=== PATIENT | female | born 1985 | race Caucasian/White ===

== ENCOUNTER 2016-12-27 20:22 | Emergency (ER) | payer MEDICAID ==
[~2016-12-27] VITALS: Ht 157.5 cm; Wt 69.5 kg
[~2016-12-27 20:22] MED LIST: PRENAT PO
[2016-12-27 20:26] VITALS: Ht 157.5 cm; Wt 69.5 kg
--- NOTE | 2016-12-27 21:58 | RADRPT ---
PROCEDURE: US Pelvis. CLINICAL INDICATION: Pelvic pain TECHNIQUE: Multiple sonographic images of the pelvis were obtained utilizing a transabdominal and endovaginal technique. The images were reviewed on a PACS workstation. COMPARISON: 06/24/2014 FINDINGS: Uterus: Normal in size, contour and echogenicity with no evidence for myometrial masses. Size is est imated at 8 x 4.9 x 4.5 cm. Cervix: No abnormalities of significance are seen. Endometrium: Normal in thickness; 3.4 mm. Right ovary / adnexa: Normal in size estimated at 2 x 1.7 x 1.2 cm. No evidence for masses, normal blood flow on Doppler interrogation. Left ovary/adnexa: Enlarged in size estimated at 4.2 x 4.1 x 2.8 cm. Anechoic simple cyst measuring 4 x 3.6 x 2.2 cm is slightly larger than on the previous exam No evidence for solid masses, normal b lood flow on Doppler interrogation. Cul-de-sac: No evidence of free fluid. RPTAT:HJJR IMPRESSION: 1. Simple left ovarian cyst is slightly larger compared to the prior exam of 06/24/2014 measuring 4 x 3.6 x 2.2 cm, previously 3 cm in maximum dimension. Findings may reflect a serous cystadenoma. Normal blood flow within the ovarian tissue is noted. Consider follow-up evaluation. 2. Remainder of the examination is unremarkable. Physician Marybel Date Time Electronically viewed and signed by Physician Marybel on 12/27/2016 21:57 /
[2016-12-27 22:05] LABS: URINE BLOOD (Dip) POC 2+ (NEGATIVE)
--- NOTE | 2016-12-27 22:15 | ERD ---
ER Documentation Chief Complaint Date/Time DATE: 12/27/16 TIME: 22:12 Chief Complaint vaginal bleeding x 2 months HPI Patient is a 31-year-old female who presents to the ED with vaginal bleeding for the last 2 months. She states that she has been using 5-6 pads a day. She denies dizziness, headache, nausea, vomiting or abdominal pain. She does state that she has mild left pelvic pain. Denies dysuria urgency. States that she has changed her control method multiple times and has tried the IUD and switch to an Implanon and now is doing Depo shot She states that she has gone to her regular doctor who stated "her bleeding is normal". She has no other complaints. She is not taking iron. She denies diarrhea or vomiting patient denies neck pain or stiffness. Denies cough, shortness of breath or difficulty breathing. Denies leg pain or swelling. No recent travel or recent surgeries. ROS All systems reviewed and are negative except as per history of present illness. Medications Home Meds Active Scripts Naproxen* (Naprosyn*) 500 Mg Tablet, 500 MG PO BID Y for PAIN AND/OR INFLAMMATION, #30 TAB Prov:CADY ENCARNACION PA-C 12/27/16 Reported Medications Multivit/Min/Fol Ac/Iron/Pren* ( S*) 1 Tab Tab, 1 TAB PO DAILY, TAB 12/22/14 Allergies Allergies: Coded Allergies: No Known Drug Allergies (Verified Allergy, Unknown, 03/20/15) PMhx/Soc Medical and Surgical Hx: pt denies Surgical Hx History of Surgery: No Anesthesia Reaction: No Hx Neurological Disorder: No Hx Respiratory Disorders: No Hx Cardiac Disorders: Yes (HTN) Hx Psychiatric Problems: No Hx Miscellaneous Medical Probl: Yes (KIDNEY STONE) Hx Alcohol Use: No Hx Substance Use: No Hx Tobacco Use: No Smoking Status: Never smoker Physical Exam Vitals Vital Signs Date Time Temp Pulse Resp B/P Pulse Ox O2 Delivery O2 Flow Rate FiO2 12/27/16 20:26 97.9 77 20 130/67 100 Physical Exam GENERAL: Well-developed, well-nourished female. Appears in no acute distress. HEAD: Normocephalic, atraumatic. EYES: Pupils are equally reactive bilaterally. EOMs grossly intact. No conjunctival erythema. ENT: Moist mucous membranes. No uvula deviation. No kissing tonsils. No exudates. NECK: Supple. No lymphadenopathy or thyromegaly. No meningismus. negative kernig. negative brudinski. LUNG: Clear to auscultation bilaterally. No rhonchi, wheezing, rales or coarse breath sounds. HEART: Regular rate and rhythm. No murmurs, rubs or gallops. ABDOMEN: No scars, ecchymosis or rashes noted. Soft, nontender, and nondistended. Positive bowel sounds in all four quadrants. No rebound tenderness , no guarding. (-) McBurneys point tenderness. No CVA tenderness. BACK: No midline tenderness. Extremities: Equal pulses bilaterally. No peripheral clubbing, cyanosis or edema. No unilateral leg swelling. NEUROLOGIC: Alert and oriented. Moving all four extremities. 5/5 strength in all extremities. Normal speech. Steady gait. SKIN: Normal color. Warm and dry. No rashes or lesions. Capillary refill < 2 seconds Result Diagram: 12/27/162129 Results 24 hrs Laboratory Tests Test 12/27/16 21:30 12/27/16 22:07 White Blood Count 9.010^3/ul Red Blood Count 4.7610^6/ul Hemoglobin 13.0g/dl Hematocrit 39.4% Mean Corpuscular Volume 82.8fl Mean Corpuscular Hemoglobin 27.3pg Mean Corpuscular Hemoglobin Concent 33.0g/dl Red Cell Distribution Width 13.5% Platelet Count 97146^3/UL Mean Platelet Volume 9.0fl Neutrophils % 39.2% Lymphocytes % 44.6% Monocytes % 7.0% Eosinophils % 8.2% Basophils % 0.7% Nucleated Red Blood Cells % 0.0/100WBC Neutrophils # 3.610^3/ul Lymphocytes # 4.010^3/ul Monocytes # 0.610^3/ul Eosinophils # 0.710^3/ul Basophils # 0.110^3/ul Nucleated Red Blood Cells # 0.010^3/ul Bedside Urine pH (LAB) 6.5 Bedside Urine Protein (LAB) Negative Bedside Urine Glucose (UA) Negative Bedside Urine Ketones (LAB) Negative Bedside Urine Blood 2+ Bedside Urine Nitrite (LAB) Negative Bedside Urine Leukocyte Esterase (L Negative Procedures/MDM ER COURSE: I kept the patient and/or family informed of laboratory and diagnostic imaging results throughout the emergency room course. IMAGING STUDIES [place] [address] Radiology Main Line: [phone] DIAGNOSTIC IMAGING REPORT Patient: JOHN URIOSTEGUI : 1985 Age: 31 Sex: F MR #: [id number] DOS: 12/27/16 2106 Ordering MD: CADY ENCARNACION PA-C Location: [facility] Room/Bed: PROCEDURE: US Pelvis. CLINICAL INDICATION: Pelvic pain TECHNIQUE: Multiple sonographic images of the pelvis were obtained utilizing a transabdominal and endovaginal technique. The images were reviewed on a PACS workstation. COMPARISON: 06/24/2014 FINDINGS: Uterus: Normal in size, contour and echogenicity with no evidence for myometrial masses. Size is estimated at 8 x 4.9 x 4.5 cm. Cervix: No abnormalities of significance are seen. Endometrium: Normal in thickness; 3.4 mm. Right ovary / adnexa: Normal in size estimated at 2 x 1.7 x 1.2 cm. No evidence for masses, normal blood flow on Doppler interrogation. Left ovary/adnexa: Enlarged in size estimated at 4.2 x 4.1 x 2.8 cm. Anechoic simple cyst measuring 4 x 3.6 x 2.2 cm is slightly larger than on the previous exam No evidence for solid masses, normal blood flow on Doppler interrogation. Cul-de-sac: No evidence of free fluid. RPTAT:HJJR IMPRESSION: 1. Simple left ovarian cyst is slightly larger compared to the prior exam of measuring 4 x 3.6 x 2.2 cm, previously 3 cm in maximum dimension. Findings may reflect a serous cystadenoma. Normal blood flow within the ovarian tissue is noted. Consider follow-up evaluation. 2. Remainder of the examination is unremarkable. Physician Marybel Date Time Electronically viewed and signed by Physician Marybel on 12/27/2016 21:57 JR/ CC: CADY ENCARNACION PA-C LABORATORY STUDIES Urine dip shows no nitrites or leukocytes, 2+ hemoglobin CBC does not show signs of anemia or infection. Negative test MEDICAL DECISION MAKING: This is a 31-year-old female who presents with vaginal bleeding 2 months. Vital signs were reviewed. Patient is afebrile. Patient is not hypoxic. Patient is not toxic or ill-appearing. Patient has vaginal bleeding of unknown etiology. Her ultrasound is read by radiologist showed a simple left ovarian cyst 4 x 3.6 x 2.2 cm. This could reflect a serous cystadenoma. Low suspicion for ovarian torsion, PID, tuboovarian abscess, ectopic , bowel obstruction, pyelonephritis, UTI, appendicitis, cervicitis, septic , molar , HELLP syndrome, preeclampsia, eclampsia, placenta previa, placenta abruptia. I have low suspicion for ovarian torsion as patient does not have pain and is not ill-appearing. Patient is walking around with no pain and smiling. Low suspicion for ectopic , , molar , endometriosis, PID, cervicitis, septic , molar , HELLP syndrome , preeclampsia, eclampsia, placenta previa, placenta abruptia. DISCHARGE: At this time, patient is stable for discharge and outpatient management with no new complaints during the ER course. Patient was sent home with Madelyn and to follow-up with her trading manager for further evaluation. copy of imaging studies was given to patient. Patient will be discharged home with instructions to recheck for new or worsening symptoms such as fever, nausea, weakness, LOC and to follow up with primary care in the next 1-2 days. Patient was advised to return to the ER for any new or worsening symptoms. Plan was discussed and patient and/or family understands and agrees. Home instructions were given. Departure Diagnosis: Primary Impression: Ovarian cyst Laterality: left Qualified Code: N83.202 - Cyst of left ovary Additional Impression: Vaginal bleeding Condition: Stable CADY ENCARNACION PA-C Dec 27, 2016 22:15
[2016-12-27 22:24] LABS: ADD SCAN DIFF NO
[2016-12-27 22:26] LABS: BASOPHIL # 0.1 10^3/ul (0.0-0.1); BASOPHILS % 0.7 % (0.0-2.0); EOSINOPHILS # 0.7 10^3/ul (0.0-0.5); EOSINOPHILS % 8.2 % (0.0-7.0); HEMATOCRIT 39.4 % (37.0-47.0); LYMPHOCYTES % 44.6 % (15.0-51.0); MEAN CORPUSCULAR HEMOGLOBIN 27.3 pg (29.0-33.0); MEAN CORPUSCULAR VOLUME 82.8 fl (82.0-101.0); MONOCYTE # 0.6 10^3/ul (0.3-0.9); NEUTROPHIL # 3.6 10^3/ul (1.6-7.5); NEUTROPHILS % 39.2 % (39.0-77.0); PLATELET COUNT 407 10^3/UL (140-415); RED BLOOD COUNT 4.76 10^6/ul (4.20-5.40); RED CELL DISTRIBUTION WIDTH 13.5 % (11.5-14.5)
[2016-12-27] MEDS ORDERED: NAPR-260 PO (22:58)
[2016-12-27 23:00] VITALS: BP 135/71; PULSE 67; RESP 18; TEMP 98.4
== END 2016-12-27 23:25 | disposition home or self-care (01) ==
LOC: FTE 20:22
DX: N83.202 Unspecified ovarian cyst, left side (principal); I10 Essential (primary) hypertension; R10.2 Pelvic and perineal pain
CPT/HCPCS: 76830; 76856; 81003; 85025; Z7502

== ENCOUNTER 2017-05-25 18:04 | Emergency (ER) | payer MEDICAID ==
[~2017-05-25] VITALS: Ht 157.5 cm; Wt 62.0 kg
[~2017-05-25 18:04] MED LIST changes: +NAPR-260 PO
[2017-05-25 18:16] VITALS: Ht 157.5 cm; Wt 62.0 kg
--- NOTE | 2017-05-25 21:38 | ERD ---
ER Documentation Chief Complaint Date/Time DATE: 05/25/17 TIME: 21:31 Chief Complaint pt bib family with c/o abd pain and slight bleeding approx 4 wks preg HPI This is a 31-year-old female presents to the ER requesting a test. Patient has not had her period over the last 8 weeks and is worried she is . Patient had a vasectomy, however she is still worried about . Patient has not had any vaginal bleeding and has not had a positive test. Denies any pelvic pain. She did. She denies any urinary or dysuria. ROS 12 point review of systems was done, all negative except per HPI. Medications Home Meds Active Scripts Naproxen* (Naprosyn*) 500 Mg Tablet, 500 MG PO BID Y for PAIN AND/OR INFLAMMATION, #30 TAB Prov:CADY ENCARNACION PA-C 12/27/16 Reported Medications Multivit/Min/Fol Ac/Iron/Pren* ( S*) 1 Tab Tab, 1 TAB PO DAILY, TAB 12/22/14 Allergies Allergies: Coded Allergies: No Known Drug Allergies (Verified Allergy, Unknown, 03/20/15) PMhx/Soc History of Surgery: No Anesthesia Reaction: No Hx Neurological Disorder: No Hx Respiratory Disorders: No Hx Cardiac Disorders: Yes (HTN) Hx Psychiatric Problems: No Hx Miscellaneous Medical Probl: Yes (KIDNEY STONE) Hx Alcohol Use: No Hx Substance Use: No Hx Tobacco Use: No Smoking Status: Never smoker Physical Exam Vitals Vital Signs Date Time Temp Pulse Resp B/P Pulse Ox O2 Delivery O2 Flow Rate FiO2 05/25/17 18:16 98.4 86 16 131/62 98 Physical Exam GENERAL: The patient is well developed and appropriate for usual state of health , in no apparent distress. HEENT: Atraumatic. CHEST: Clear to auscultation bilaterally. There are no rales, wheezes or rhonchi. HEART: Regular rate and rhythm. No murmurs, clicks, rubs or gallops. NEURO: Alert and oriented. SKIN: The skin is warm and dry. Procedures/MDM This is a 31-year-old female presents to the ER requesting a test. Patient's test is negative at this time. Patient likely has dysfunctional uterine bleeding versus missed. Patient is to follow-up with her primary care doctor within 1-2 days or return to ER sooner if symptoms worsen. My medical decision making shared with the patient she understands and agrees with plan. Departure Diagnosis: Primary Impression: test negative Condition: Stable Patient Instructions: Control Methods Referrals: [facility] Hours: 8:00 am - 5:00 pm Additional Instructions: Llame al doctor MAANA y gerber thomas KEVIN PARA DENTRO DE 1-2 WOLF.Dgale a la secretaria que nosotros le instruimos hacer esta kevin.Avise o llame si dickson condicin se empeora antes de la kevin. Regresa aqui si peor o no mejor. YRIS CHA May 25, 2017 21:38
== END 2017-05-25 21:01 | disposition home or self-care (01) ==
LOC: FTE 18:04
DX: R10.9 Unspecified abdominal pain (principal); I10 Essential (primary) hypertension; Z32.02 Encounter for pregnancy test, result negative
CPT/HCPCS: 99282

== ENCOUNTER 2017-10-10 08:35 | Emergency (ER) | END 2017-10-10 12:59 | disposition home or self-care (01) ==

== ENCOUNTER 2018-01-12 19:09 | Emergency (ER) | END 2018-01-13 00:03 | disposition left against medical advice (07) ==

== ENCOUNTER 2018-02-05 19:56 | Emergency (ER) | END 2018-02-06 00:21 | disposition home or self-care (01) ==

== ENCOUNTER 2018-03-22 12:33 | Emergency (ER) | END 2018-03-22 17:00 | disposition home or self-care (01) ==

== ENCOUNTER 2018-08-23 08:00 | Emergency (ER) | payer MEDICAID ==
[~2018-08-23] VITALS: Ht 160 cm; Wt 79.7 kg
[~2018-08-23 08:00] MED LIST changes: +AZIT250T PO; +BENZ-6 PO; +CEPH-443 PO; +D-ME473S2 PO; -NAPR-260 PO; +NAPR-985 PO
[2018-08-23 08:01] VITALS: BP 106/62; PULSE 84; RESP 16; Ht 160 cm; Wt 79.7 kg
[2018-08-23] MEDS ORDERED: NPH10OT LEFT EAR (08:25)
--- NOTE | 2018-08-23 08:37 | ERD ---
ER Documentation Chief Complaint Chief Complaint LEFT EAR PAIN X 3 DAYS HPI 32-year-old female complaining of left ear pain times 3 days. Patient reports slight cough, but denies nasal congestion. Denies fevers or chills. Denies ear drainage. Denies decreased hearing. Patient is currently , MARKELL 09/28/2018. Denies abdominal pain or pelvic pain. Denies vaginal bleeding. ROS All systems reviewed and are negative except as per history of present illness. Medications Home Meds Active Scripts Neomycin/Polymyxin/Hydrocort* (Cortisporin* Otic) 10 Ml Susp, 4 DROP LEFT EAR QID for 7 Days, EA Prov:ADE JONES. BOX SEALING MACHINE FEEDER 08/23/18 Cephalexin* (Keflex*) 500 Mg Capsule, 500 MG PO QID for 5 Days, CAP Prov:ABUNDIO LOMBARDIC 02/05/18 Dextromethorphan Hb-Promethazine Hcl* (Promethazine DM* Syrup) 473 Ml Syrup, 5 ML PO Q6 PRN for COUGH, #4 OZ Prov:DANNA LEÓNC 10/10/17 Benzonatate* (Tessalon Perle*) 100 Mg Capsule, 100 MG PO Q8H PRN for COUGH, #20 CAP Prov:DANNA LEÓNC 10/10/17 Azithromycin* (Zithromax*) 250 Mg Tablet, 250 MG PO .ZPACK DIRECTED, #6 TAB TAKE 500 MG (2 TABS) THE FIRST DAY THEN 250 MG (1 TAB) DAYS 2-5 Prov:DANNA LEÓNC 10/10/17 Naproxen* (Naprosyn*) 500 Mg Tablet, 500 MG PO BID PRN for PAIN AND/OR INFLAMMATION, #30 TAB Prov:CADY ENCARNACION PABertramC 12/27/16 Reported Medications Multivit/Min/Fol Ac/Iron/Pren* ( S*) 1 Tab Tab, 1 TAB PO DAILY, TAB 12/22/14 Allergies Allergies: Coded Allergies: No Known Drug Allergies (Verified Allergy, Unknown, 02/05/18) PMhx/Soc History of Surgery: No Anesthesia Reaction: No Hx Neurological Disorder: No Hx Respiratory Disorders: No Hx Cardiac Disorders: Yes (HTN) Hx Psychiatric Problems: No Hx Miscellaneous Medical Probl: Yes (KIDNEY STONE) Hx Alcohol Use: No Hx Substance Use: No Hx Tobacco Use: No Smoking Status: Never smoker Physical Exam Vitals Vital Signs Date Temp Pulse Resp B/P (MAP) Pulse Ox O2 O2 Flow FiO2 Time Delivery Rate 08/23/18 97.4 84 16 106/62 98 08:01 (77) Physical Exam General: Well-developed, well-nourished, conscious and coherent, in no di stress Skin: Warm and dry without rash, good texture and turgor Head: Normocephalic without evidence of trauma Eyes: Sclera and conjunctivae normal; pupils equal, round, and reactive to light; extraocular movements are intact Ears: Canals are patent, with diffuse canal narrowing on the left. Tympanic membranes are clear. Left tragal tenderness. Chest: Normal AP diameter. Good expansion without retractions. Nontender. Lungs are clear to auscultate bilaterally with good tidal volume Heart: Regular rate and rhythm. No murmur, rub, or gallops heard Abdomen: Gravid Extremities: Full range of motion. Good strength bilaterally. Neuro: Alert and oriented 4, GCS 15. Procedures/MDM Well-appearing 32-year-old female presents the ED with left ear pain times 3 days. Exam findings consistent with left otitis externa. No sign of otitis media or perforated tympanic membrane. Patient is approximately 35 weeks , denies abdominal pain, pelvic pain, or vaginal bleeding. I doubt delivery. Patient appears well, stable for discharge and outpatient management. Medical decision making shared with patient and family. Education provided to patient and family. Patient and family expressed understanding of the plan. Medications on discharge: Cortisporin otic. Follow-up: Primary care provider in 2-3 days or return to ED if worse. Disclaimer: Inadvertent spelling and grammatical errors are likely due to EHR/dictation software use and do not reflect on the overall quality of patient care. Also, please note that the electronic time recorded on this note does not necessarily reflect the actual time of the patient encounter. Departure Diagnosis: Primary Impression: Otitis externa Otitis externa type: unspecified type Chronicity: acute Laterality: left Qualified Codes: H60.502 - Unspecified acute noninfective otitis externa, left ear Condition: Stable Patient Instructions: External Ear Infection (Adult) [facility] Usted se santana hecho un examen mdico de control que le indica que no est en thomas condicin que requiera tratamiento urgente en el Departamento de Emergencia. Un estudio ms profundo y el tratamiento de dickson condicin pueden esperar sin ningn riesgo hasta que usted sea atendida/o en el consultorio de dickson mdico o thomas clnica. Es responsabilidad suya arreglar thomas kevin para el seguimiento del tran. MANEJO DE CONDICIONES NO URGENTES EN EL FUTURO 1) Si usted tiene un mdico de atencin primaria: Usted debera llamar a dickson mdico de atencin primaria antes de venir al departamento de emergencia. Despus de las horas de consultorio, dickson doctor o dickson asociado/a est disponible por telfono. El mdico o enfermero de deandre en el servicio telefnico puede asesorarle por uday medio para atender el problema, o tran contrario se puede programar thomas kevin. 2) Si usted no tiene un mdico de atencin primaria: Llame al mdico o clnica de referencia que aparece abajo jeremiah las horas de consultorio para hacer thomas kevin para que le vean. CLINICAS: [facility] [phone] [facility] [phone] [address] [facility]. [facility] [phone] [address] [facility]. [facility] [phone] [facility]. [place] [id number] [phone] [facility]. [phone] [address] Additional Instructions: Llame al doctor nombrado abajo (Referral Sources) MAANA y gerber thomas KEVIN PARA DENTRO DE THOMAS SEMANA. Dgale a la secretaria que nosotros le instruimos hacer esta kevin.Avise o llame si dickson condicin se empeora antes de la kevin. ADE JONES. LIVAN Aug 23, 2018 08:37
== END 2018-08-23 08:40 | disposition home or self-care (01) ==
LOC: FTE 08:00
DX: H60.502 Unspecified acute noninfective otitis externa, left ear (principal); I10 Essential (primary) hypertension; R40.2412 Glasgow coma scale score 13-15, at arrival to emergency department
CPT/HCPCS: 99283

== ENCOUNTER 2018-09-15 13:08 | Outpatient (CLI) | payer MEDICAID ==
[~2018-09-15] VITALS: Ht 154.9 cm; Wt 82.5 kg
[~2018-09-15 13:08] MED LIST changes: +NPH10OT LEFT EAR
[2018-09-15 13:19] VITALS: BP 113/69; PULSE 92; RESP 18
[2018-09-15 13:21] VITALS: Ht 154.9 cm; Wt 82.5 kg
--- NOTE | 2018-09-15 14:26 | TRIAGE ---
OB Triage Datetime Report Generated by CPN: 09/15/2018 14:25 Datetime: 09/15/2018 14:20 Vaginal Exam Dilatation (cms): 2.0 Effacement (%): 50 Station: -3 Exam By: khemani Vaginal Bleeding: None Cervix, Consistency: Moderate Cervix, Position: Midposition Datetime: 09/15/2018 14:00 Stage of : OB Triage Maternal Assessment Level of Consciousness: Fully Conscious Labor Evaluation Frequency: 2uc/hr Monitor Mode: External Duration (sec)2399: 80-130 Quality: Mild Resting Tone [place]: Relaxed Heart Rate FHR Baseline Rate: 135 Monitor Mode: External US Variability: Moderate 6-25 bpm Accelerations: 15X15 Decelerations: None Category: Category I Pain Assessment Pain Scale: 0 Pain Presence: None/Denies Pain Goal: 3 Membrane Status: Intact Vaginal Bleeding: None Datetime: 09/15/2018 13:13 EGA: 38.3 Datetime: 09/15/2018 12:55 Stage of : OB Triage Maternal Assessment Level of Consciousness: Fully Conscious DTR's/Clonus: DTRs 2+; No Clonus Headache: Denies Blurred Vision: No Respiratory Effort: Unlabored; Regular Rhythm; Equal Expansion Breath Sounds, Left: Clear and Equal Breath Sounds, Right: Clear and Equal Nausea/Vomiting: Denies RUQ Epigastric Pain: Denies Lower Extremities Edema: Bilateral Lower Extremities Degree: 1+ Upper Extremities Edema: None Degree: None Facial Edema: None Temperature Route: Oral Fall Risk Assessment History of Falling: (0) No Secondary Diagnosis: (0) No Ambulatory Aid: (0) Bedrest/Nurse Assist IV Therapy: (0) No Gait: (0) Normal/Bedrest/Immobile Mental Status: (0) Oriented to Own Ability Fall Score: 0 Fall Risk Score Definition: No Risk: No action required Labor Evaluation Frequency: 10 Monitor Mode: External Heart Rate FHR Baseline Rate: 145 Monitor Mode: External US Pain Presence: None/Denies Datetime: 09/15/2018 12:54 Time of Arrival: 09/15/2018 12:54 Arrived By: Ambulatory Arrived From: Dr. Cleary Chief Complaint: sent from clinic for contractions Movement: Present Contractions: Irregular Contractions: 10 Rupture of Membranes: Denies Vaginal Bleeding: None Vaginal Discharge: Denies Recent Sexual Intercouse: Denies Abdominal Trauma: Not Applicable Patient Complaints: Contractions Time Provider Notified: 09/15/2018 13:30 Provider Notified: Kirsten Initial Plan: EFM/SVE/BPP
--- NOTE | 2018-10-13 16:04 | QN ---
Documentation Comment patient not in labor. no htn discharge home with labor precautions and preeclampsia precautions CHEIKH SALCEDO MD Oct 13, 2018 16:03
== END 2018-09-15 14:30 | disposition home or self-care (01) ==
LOC: L-D 13:08 → OBT 13:08
PROVIDERS: ATTEND Obstetrics & Gynecology
DX: O62.9 Abnormality of forces of labor, unspecified (principal); Z3A.38 38 weeks gestation of pregnancy
CPT/HCPCS: 76818

== ENCOUNTER 2018-09-21 08:00 | Inpatient (IN) | payer MEDICAID ==
[~2018-09-21] VITALS: Ht 152.4 cm; Wt 82.1 kg
[2018-09-21 08:13] VITALS: BP 109/72; PULSE 83; RESP 18
[2018-09-21] MEDS ORDERED: METHYLERGONOVINE 0.2 MG INJ IM PRN (09:00)
[2018-09-21] MEDS ORDERED: OXYTOCIN 30 UNITS/LR 500 ML IV SCH ×4 (09:00→20:40)
[2018-09-21] MEDS ORDERED: AMPICILLIN 2 GM/NS (PMX) 100 ML IV ONE (09:00)
[2018-09-21] MEDS ORDERED: MISOPROSTOL 200 MCG TAB PR PRN (09:00)
[2018-09-21] MEDS ORDERED: OXYTOCIN 30 UNITS/LR 500 ML IV PRN (09:00)
[2018-09-21] MEDS ORDERED: BUTORPHANOL 2 MG INJ IV PRN (09:00)
[2018-09-21] MEDS ORDERED: LIDOCAINE 1% (MPF) 30 ML INJ INJ PRN (09:00)
[2018-09-21] MEDS ORDERED: CARBOPROST 250 MCG INJ IM PRN (09:00)
[2018-09-21] MEDS: LACTATED RINGER'S 1,000 ML IV SCH ×3 (09:44→19:24)
[2018-09-21 09:52] VITALS: Ht 152.4 cm; Wt 82.1 kg
[2018-09-21] MEDS ORDERED: ONDANSETRON 4 MG INJ IV PRN ×2 (12:00→21:00)
[2018-09-21] MEDS ORDERED: DIPHENHYDRAMINE 50 MG INJ IV PRN (12:00)
[2018-09-21] MEDS ORDERED: NALOXONE (0.4 MG/ML) INJ IV PRN (12:00)
--- NOTE | 2018-09-21 12:00 | PREAC ---
Date/Time of Note Date/Time of Note DATE: 09/21/18 TIME: 11:57 Anesthesia Eval and Record Evaluation Time Pre-Procedure Interview DATE: 09/21/18 TIME: 11:57 Age 32 Sex female NPO: 8 hrs Preoperative diagnosis IUP Planned procedure L&D Epidural Past Medical History Past Medical History: None Surgery & Anesthesia Issues No known issue Meds Anticoagulation: No Beta Mackenzie within 24 hr: No Reason Beta Mackenzie not given: Pt. not on B-Mackenzie Active Scripts Neomycin/Polymyxin/Hydrocort* (Cortisporin* Otic) 10 Ml Susp, 4 DROP LEFT EAR QID for 7 Days, EA Prov:ADE JONES DIRECTOR SUPPLIER QUALITY 08/23/18 Cephalexin* (Keflex*) 500 Mg Capsule, 500 MG PO QID for 5 Days, CAP Prov:ABUNDIO LOMBARDIC 02/05/18 Dextromethorphan Hb-Promethazine Hcl* (Promethazine DM* Syrup) 473 Ml Syrup, 5 ML PO Q6 PRN for COUGH, #4 OZ Prov:DANNA LEÓNC 10/10/17 Benzonatate* (Tessalon Perle*) 100 Mg Capsule, 100 MG PO Q8H PRN for COUGH, #20 CAP Prov:DANNA LEÓNC 10/10/17 Azithromycin* (Zithromax*) 250 Mg Tablet, 250 MG PO .ZPACK DIRECTED, #6 TAB TAKE 500 MG (2 TABS) THE FIRST DAY THEN 250 MG (1 TAB) DAYS 2-5 Prov:DANNA LEÓNC 10/10/17 Naproxen* (Naprosyn*) 500 Mg Tablet, 500 MG PO BID PRN for PAIN AND/OR INFLAMMATION, #30 TAB Prov:CADY ENCARNACION PA-C 12/27/16 Reported Medications Multivit/Min/Fol Ac/Iron/Pren* ( S*) 1 Tab Tab, 1 TAB PO DAILY, TAB 12/22/14 Current Medications Lactated Ringer's 1,000 ml @ 125 mls/hr Q8H IV Last administered on 09/21/18at 09:44; Admin Dose 125 MLS/HR; Start 09/21/18 at 08:55 Ampicillin 50 ml @ 100 mls/hr Q4H IV ; Start 09/21/18 at 13:00 Butorphanol Tartrate (Stadol) 2 mg Q2H PRN IV PAIN; Start 09/21/18 at 09:00 Lidocaine (Xylocaine 1% (Mpf)) 30 ml ONCE PRN INJ EPISIOTOMY; Start 09/21/18 at 09:00 Oxytocin/Lactated Ringer's 500 ml @ 500 mls/hr ONCE POST IV ; Start 09/21/18 at 09:00 Oxytocin/Lactated Ringer's 500 ml @ 125 mls/hr POST IV ; Start 09/21/18 at 09:00 Oxytocin/Lactated Ringer's 500 ml @ 0 mls/hr ONCE PRN IV VAGINAL BLEEDING; Start 09/21/18 at 09:00 Methylergonovine Maleate (Methergine) 0.2 mg ONCE PRN IM VAGINAL BLEEDING; Start 09/21/18 at 09:00 Carboprost Tromethamine (Hemabate) 250 mcg ONCE PRN IM VAGINAL BLEEDING; Start 09/21/18 at 09:00 Misoprostol (Cytotec) 1,000 mcg ONCE PRN ME VAGINAL BLEEDING; Start 09/21/18 at 09:00 Meds reviewed: Yes Allergies Coded Allergies: No Known Drug Allergies (Verified Allergy, Unknown, 02/05/18) Allergies Reviewed: Yes Labs/Studies Labs Reviewed: Reviewed by anesthesiologist Result Diagram: 09/21/18 0830 Laboratory Tests 09/21/18 08:30 Blood Bank Test 09/21/18 08:30 Antibody Screen NEGATIVE Blood Type B POSITIVE Rh Immune Globulin Candidate NO test: Positive Studies: ECG Pre-procedure Exam Last vitals Vital Signs Date Temp Pulse Resp B/P (MAP) Pulse Ox O2 O2 Flow FiO2 Time Delivery Rate 09/21/18 98.2 83 18 109/72 Room Air 08:13 (84) Airway: Adequate mouth opening, Adequate thyromental dist Mallampati: Mallampati II Teeth: Normal Lung: Normal Heart: Normal ASA Physical Status ASA physical status: 2 Emergency: None Planned Anesthetic Neuraxial: Epidural Planned Pain Management Epidural Pre-operative Attestations Prior to commencing anesthesia and surgery, the patient was re-evaluated, there was verification of: *The patient's identity *The results of appropriate recent lab work and preoperative vital signs *The above evaluation not changing prior to induction *Anesthetic plan, risk benefits, alternative and complications discussed with patient/family; questions answered; patient/family understands, accepts and wi shes to proceed. DEVON CAMILO MD Sep 21, 2018 12:00
[2018-09-21] MEDS: FENTAnyl 2MCG/ML-ROPIV 0.2% 100 ML BAG EPI SCH ×2 (12:52→18:04)
[2018-09-21] MEDS ORDERED: MISOPROSTOL 50 MCG CAPSULE VAG ONE (13:00)
[2018-09-21] MEDS: AMPICILLIN 1 GM/NS (PMX) 50 ML IV SCH ×2 (13:28→17:12)
--- NOTE | 2018-09-21 19:20 | PREOPHP ---
DATE OF ADMISSION: 09/21/2018 HISTORY OF PRESENT ILLNESS: Ms. Monika Plaza is a 32-year-old 5, para 3, EDC of 09/26/2018, intrauterine at 39 weeks and 2 days gestational age, presented to triage today complaining of contractions. At that time, she was 2 cm dilated. She denies any vaginal bleeding or discharge. Her care took [facility] at [facility]. PAST MEDICAL HISTORY: None. MEDICATIONS: vitamins. PAST SURGICAL HISTORY: None. OBSTETRICAL HISTORY: x3 vaginal delivery, x1 missed AB. GYNECOLOGIC HISTORY: 10, regular 3 to 4 days. Denies any sexually transmitted disease. Sexually ac tive with 1 partner. SOCIAL HISTORY: Denies any smoking, drugs or alcohol. FAMILY HISTORY: None. REVIEW OF SYSTEMS: All within normal except history of present illness. PHYSICAL EXAMINATION: HEENT: Within normal. LUNGS: CTA bilateral. CARDIOVASCULAR: S1, S2, regular rate and rhythm. ABDOMEN: Gravid, nontender. Negative CVA bilateral. EXTREMITIES: Negative. No calf tenderness. PELVIC: Vaginal exam: 4 cm, 80% effaced and -2 station. Artificial rupture of membranes. he art tracing category 1. [place]: Regular contractions. ASSESSMENT: Intrauterine at 39 weeks and 2 days gestational age, admitted for labor augmen tation. PLAN: Anticipated vaginal delivery. GBS prophylaxis. Risks, benefits and alternatives were explain ed. All questions were answered. Dictated By: CHEIKH TIRADO/JENNA Conf#: [id number] DID#: [id number]
[2018-09-21] MEDS ORDERED: MINERAL OIL LIGHT 10 ML VIAL ONE (20:23)
--- NOTE | 2018-09-21 20:40 | LDN ---
Date/Time of Note Date/Time of Note DATE: 09/21/18 TIME: 20:39 Delivery Summary Weeks of Gestation 39 Placenta Delivered: Spontaneously Meconium: none Episiotomy: No Estimated blood loss: 150 Sponge & Needle done & correct: Yes All needle counts correct: Yes Any foreign bodies felt in the: No Delivery Information Sex Infant Sex: male Apgars 1 Minute: 8 5 Minute: 9 Suctioning Nose & mouth suctioned at ca: No Delee suction performed: No Umbilical Cord Umbilical cord with: 3 Vessels Cord presentations: no nuchal cord Cord Blood was obtained: Yes CHEIKH SALCEDO MD Sep 21, 2018 20:40
[2018-09-21] MEDS ORDERED: OXYCODONE/ASPIRIN (4.88/325) TAB PO PRN ×2 (21:00)
[2018-09-21] MEDS: SENNA/DOCUSATE NA (8.6MG/50MG) TAB PO SCH (21:00)
[2018-09-21] MEDS ORDERED: NACL 0.9% 3 ML SYG IV SCH (21:00)
[2018-09-21 22:35] VITALS: BP 101/59; PULSE 72; RESP 18
--- NOTE | 2018-09-21 22:35 | NUR ---
Received pt from L&D in stable condition. No distress noted. Fundus firm with Moderate amount lochia noted.
[2018-09-22] VITALS: BP 109/67; PULSE 72; RESP 18
[2018-09-22 04:00] VITALS: BP 104/64; PULSE 81; RESP 18
--- NOTE | 2018-09-22 05:15 | NUR ---
EOSS: Pt is in stable condition. No distress noted. Up and voiding with no dizziness noted. Fundus firm with small to moderate amount of lochia noted. Bonding well with Baby.
[2018-09-22] MEDS: IBUPROFEN 600 MG TAB PO SCH ×4 (05:44→17:43)
[2018-09-22 08:00] VITALS: BP 100/52; PULSE 77; RESP 20
[2018-09-22] MEDS: SENNA/DOCUSATE NA (8.6MG/50MG) TAB PO SCH ×2 (09:33→21:07)
[2018-09-22 12:00] VITALS: BP 103/55; PULSE 68; RESP 19
[2018-09-22 15:30] VITALS: BP 106/58; PULSE 78; RESP 18
--- NOTE | 2018-09-22 16:10 | PN ---
Date/Time of Note Date/Time of Note DATE: 09/22/18 TIME: 16:08 OB Subjective Subjective Subjective PPD# 1 Patient is doing well. She denies nausea, vomiting, shortness of breath, chest pain, headache. She has been ambulating without difficulty, tolerating regular diet. Pain is well controlled on current medications OB Objective Objective Objective VS - Last 72 Hours, by Label Date Temp Pulse Resp B/P (MAP) Pulse Ox O2 O2 Flow FiO2 Time Delivery Rate 09/22/18 98.3 68 19 103/55 Room Air 12:00 (71) 09/22/18 98.5 77 20 100/52 Room Air 08:00 (68) 09/22/18 98.4 81 18 104/64 98 Room Air 04:00 (77) 09/22/18 98.1 72 18 109/67 98 Room Air 00:00 (81) 09/21/18 100.0 72 18 101/59 98 Room Air 22:35 (73) 09/21/18 98.2 83 18 109/72 Room Air 08:13 (84) General: AAO X 3, comfortable, NAD, appropriate mood and affect. ABD: +BS. Soft, non-tender. Uterus 2 cm below umbilicus Flank: No CVA tenderness (B/L) LE: Mild edema. No clubbing, cyanosis, thigh or calf tenderness (B/L). Homans 'sign is negative OB Assessment/Plan Other plan: 38 years old G5 [id number] s/p normal vaginal delivery at 39 weeks and 2 days. PPD#1 - AF, VSS - Baby is doing well, at bed side. She is bonding well - Contraception methods with R/B/A/FR discussed - Continue care - Discharge home tomorrow - Rx and instruction given - Follow up in 2 and 6 weeks at clinic JUANY HUSAIN Sep 22, 2018 16:10
--- NOTE | 2018-09-22 18:23 | NUR ---
EOSS: PT IS IN STABLE CONDITION VSS, DENIES PAIN AND DISCOMFORT. PT BONDING WITH THE BABY WELL.
[2018-09-22 20:30] VITALS: BP 101/62; PULSE 73; RESP 18
[2018-09-23] MEDS: IBUPROFEN 600 MG TAB PO SCH ×3 (00:10→12:00)
--- NOTE | 2018-09-23 05:27 | NUR ---
EOSS: PT IS IN STABLE CONDITION. NO DISTRESS NOTED. FUNDUS FIRM WITH SMALL AMOUNT LOCHIA NOTED. BONDING WELL WITH BABY.
[2018-09-23 08:00] VITALS: BP 104/64; PULSE 78; RESP 20
[2018-09-23] MEDS: SENNA/DOCUSATE NA (8.6MG/50MG) TAB PO SCH (08:57)
[2018-09-23 16:00] VITALS: BP 108/71; PULSE 70; RESP 20
--- NOTE | 2018-09-23 16:59 | PD.PPDC ---
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 Condition Ejail0Ca Patient Condition: Notap3u Fair Diet [id number] Diet: Qngnp8t Resume Regular Diet Activity/Restrictions [id number] Activity: Toetw7o Normal Activity May Shower [id number] Restrictions: Tushf5u No Exercising No Lifting No Driving No Sexual Activity Nothing in the Vagina No [place] No Tampons, douche Follow-up Follow-up with Physician: 3, Week/Weeks Return to clinic for Bugex1Rd [facility] Instructions: Pviua6v Fever greater than 101 Chills Worsening abdominal pain Excessive Vaginal Bleeding More than 2 pads per hour Unable to tolerate diet Egwhe5Yg OB Instructions: Lpgyo2s Breast Tenderness Depression Blurried Vision Headache Rpehp7Ch Surgical Instructions: Eanww8p Incisional Drainage Incisional Redness CHEIKH SALCEDO MD Sep 23, 2018 16:59
--- NOTE | 2018-09-23 17:01 | DS ---
Date/Time of Note Date/Time of Note DATE: 09/23/18 TIME: 17:00 Obstetrical Discharge Record Final Diagnosis Final Diagnosis: Term delivered Vaginal Delivery Obstetrical Delivery: Spontaneous Condition on Discharge Physical Assessment Last Vitals: stable afebrile Voiding: Yes Bowel Movement: Yes Breast: Soft, non-tender, Filling Fundus: Firm Calf Tenderness: No Patient Condition: CHEIKH Hamilton MD Sep 23, 2018 17:00
--- NOTE | 2018-09-23 18:04 | NUR ---
DISCHARGED IN STABLE CONDITION WITH BABY.
== END 2018-09-23 18:10 | disposition home or self-care (01) | DRG 807 ==
LOC: L-D 08:00 → PP1 22:35
PROVIDERS: ADMIT Obstetrics & Gynecology; ATTEND Obstetrics & Gynecology
PROC: 10E0XZZ Delivery of Products of Conception, External Approach (ICD-10-PCS; principal; 2018-09-21 08:00)
DX: O80 Encounter for full-term uncomplicated delivery (principal); Z37.0 Single live birth; Z3A.39 39 weeks gestation of pregnancy
CPT/HCPCS: 62319; 76815; 85025; 85610; 85730; 86592; 86850; 86900; 86901; J0290; J2590; J3010; J7120